=== PATIENT | male | born 1995 | race Hispanic/Latino ===

== ENCOUNTER 2016-09-22 13:37 | Emergency (ER) | payer OTHER ==
[2016-09-22 13:44] VITALS: BP 106/85
[2016-09-22] MEDS ORDERED: MORPHINE IM ONE (14:15)
[2016-09-22] MEDS ORDERED: NACL 0.9% IR ONE (14:16)
--- NOTE | 2016-09-22 14:18 | XRay Report ---
RIGHT FEMUR, ONE VIEW History: Trauma. Findings: Limited single view of the right femur is presented. The lateral femoral condyle is not included. No bony abnormality is detected. There is soft tissue gas in the distal thigh suggesting a soft tissue injury. Impression: No acute bony injury is appreciated.
[2016-09-22] MEDS ORDERED: BOOSTRIX IM ONE (14:37)
[2016-09-22] MEDS ORDERED: NACL 0.9% 500 ML IR ONE (14:58)
--- NOTE | 2016-09-22 18:26 | Emergency Department Report ---
Entered by LIAM LEUNG, acting as scribe for GALE HERNANDEZ NP. ED Animal Bite HPI - General Chief Complaint: Animal Bite Stated Complaint: DOG BITE RT LEG Time Seen by Provider: 09/22/16 13:54 Source: patient, police Mode of arrival: Ambulatory Limitations: No Limitations - History of Present Illness Initial Comments: This is a 21 y/o male nontoxic, well nourished in appearance, no acute signs of distress presents with bite soler to the right lower extremity resulting from a Police K9 dog attack after running from the police. Four bite soler noted on the anterior thigh and one bite tanner noted on the lateral calf. Bleeding is controlled and pt denies, fever, chills, chest pain, joint swelling, joint redness, joint tenderess, SOB, abd pain, numbness, tingling or PABON. Police K9 dog vaccinations are UTD. No additional Sx. Police is currently present in the time of interview. MD Complaint: animal bite (k9 dog bite) -: days(s) (today [employer]) Location: other (lower right extremity) Right: Thigh (4 bite soler to the anterior thigh), Leg (1 bite tanner to the lateral calf) Animal: dog Animal Control Notified: No Description: immunizations UTD (as per community relations officer) Mechanism: bite Pain Description: constant Severity scale (0 -10): 6 Context: other (running from [facility] police department) Associated Symptoms: bleeding (controlled). denies: erythema, discharge from wound, fever, chills, rash, loss of consciousness, cough, headache, diaphoresis , shortness of breath Treatments Prior to Arrival: wound dressing(s) - Related Data Patient Tetanus UTD: No (as per pt) Previous Rx's Medication Instructions Recorded Last Taken Type Amoxicillin/K Clav Tab [Augmentin 1 tab PO Q12HR #20 tab 09/22/16 Unknown Rx 875 mg] Ibuprofen [Motrin 600 MG tab] 600 mg PO Q8H PRN #15 tablet 09/22/16 Unknown Rx Allergies Allergy/AdvReac Type Severity Reaction Status Date / Time No Known Allergies Allergy Unverified 09/22/16 13:40 ED Review of Systems Comment: All other systems reviewed and negative Constitutional: denies: chills, fever Eyes: denies: eye pain, eye discharge, vision change ENT: denies: ear pain, throat pain Respiratory: denies: cough, shortness of breath, wheezing Cardiovascular: denies: chest pain, palpitations Endocrine: no symptoms reported Gastrointestinal: denies: abdominal pain, nausea, diarrhea Genitourinary: denies: urgency, dysuria Musculoskeletal: denies: back pain, joint swelling, arthralgia Skin: other (4 bite soler to the anterior thigh, 1 bite tanner to the lateral calf ). denies: rash, lesions Neurological: denies: headache, weakness, paresthesias Psychiatric: denies: anxiety, depression Hematological/Lymphatic: denies: easy bleeding, easy bruising ED Past Medical Hx - Past Medical History Previous Medical History?: No - Surgical History Past Surgical History?: No - Social History Smoking Status: Unknown if ever smoked Substance Use Type: None - Medications Home Medications: Home Medications Medication Instructions Recorded Confirmed Last Taken Type Amoxicillin/K Clav Tab [Augmentin 1 tab PO Q12HR #20 tab 09/22/16 Unknown Rx 875 mg] Ibuprofen [Motrin 600 MG tab] 600 mg PO Q8H PRN #15 tablet 09/22/16 Unknown Rx ED Physical Exam - General Limitations: No Limitations General appearance: alert, in no apparent distress - Head Head exam: Present: atraumatic, normocephalic - Eye Eye exam: Present: normal appearance, PERRL, EOMI Pupils: Present: normal accommodation - ENT ENT exam: Present: normal exam, normal orophraynx, mucous membranes moist, TM's normal bilaterally, normal external ear exam. Absent: mucous membranes dry - Neck Neck exam: Present: normal inspection, full ROM. Absent: tenderness, meningismus, lymphadenopathy, thyromegaly - Respiratory Respiratory exam: Present: normal lung sounds bilaterally. Absent: respiratory distress, wheezes, rales, rhonchi, stridor - Cardiovascular Cardiovascular Exam: Present: regular rate, normal rhythm, normal heart sounds. Absent: bradycardia, tachycardia, irregular rhythm, systolic murmur, diastolic murmur, rubs, gallop - GI/Abdominal GI/Abdominal exam: Present: soft, normal bowel sounds. Absent: distended, tenderness, guarding, rebound, rigid, diminished bowel sounds, mass, bruit - Rectal Rectal exam: Present: deferred - Extremities Exam Extremities exam: Present: normal inspection, full ROM, normal capillary refill. Absent: tenderness, pedal edema, joint swelling, calf tenderness - Back Exam Back exam: Present: normal inspection, full ROM. Absent: tenderness, CVA tenderness (R), CVA tenderness (L), muscle spasm, paraspinal tenderness, vertebral tenderness - Neurological Exam Neurological exam: Present: alert, oriented X3, CN II-XII intact, normal gait, reflexes normal. Absent: abnormal gait, motor sensory deficit - Psychiatric Psychiatric exam: Present: normal affect, normal mood - Skin Skin exam: Present: warm, dry, intact, normal color, other (four 0.2 cm bite soler to the anterior thigh, one 0.2cm bite tanner to the lateral calf. Bleeding controlled). Absent: rash ED Course Vital Signs 09/22/16 09/22/16 13:41 14:58 Temperature 97.7 F Pulse Rate 45 L 81 Respiratory 18 Rate Blood Pressure 106/85 O2 Sat by Pulse 96 Oximetry ED Disposition Clinical Impression: Animal bite, Abrasion Disposition: DC-01 TO HOME OR SELFCARE Is pt being admited?: No Does the pt Need Aspirin: No Condition: Stable Instructions: Animal Bite (ED), Acute Wound Care (ED) Additional Instructions: Observe symptoms of infection such as pus, redness, swelling, drainage, numbness , tingling, fever, chills and to report back to emergency room as soon as possible. Follow-up with a Primary care doctor in 24 hours. Take full course of antibiotics as prescribed. A pressure dressing has been applied to the wound and must be changed in less than 24 hours and observe symptoms of uncontrollable bleeding and if so report back to emergency room. Prescriptions: Amoxicillin/K Clav Tab [Augmentin 875 mg] 1 tab PO Q12HR #20 tab Ibuprofen [Motrin 600 MG tab] 600 mg PO Q8H PRN #15 tablet PRN Reason: Pain Referrals: [facility] [Outside] - 3-[address] [facility] [Outside] - 3-5 Days PRIMARY CAREMD [Primary Care Provider] - 24 Hours CHRISTINA ONEAL JR, MD [Staff Physician] - 24 Hours Forms: Work/School Release Form(ED) ED Medical Decision Making - Medical Decision Making Ed course: This is a 21-year-old male that presents with abrasions to the right lower extremity status post dog bite 1- community relations officer is currently present at the time of interview. Stated the K9 dog is up-to-date vaccines. 2- patient was instructed to observe symptoms of infection such as pus, redness , swelling, drainage, numbness, tingling, fever, chills and to report back to emergency room as soon as possible. 3- patient received Augmentin 875 mg by mouth at the time of discharge for 10 days. 4- patient received morphine 2 mg IM and Tetanus and wound has been irrigated and cleaned with 1 L of normal saline. Sterile pressure dressing has been applied. 5- at time time of discharge, the patient does not seem toxic or ill in appearance. No acute signs of distress noted. Patient agrees to discharge treatment plan of care. No further questions noted by the patient. 6- place officer stated that the patient is currently going to go to [facility] after visit. 7- x-ray has been obtained with normal results. no fx. Dictated by Dr. Hylton. This documentation as recorded by the MADHU vasques RYAN,accurately reflects the service I personally performed and the decisions made by ,GALE HERNANDEZ, DERRICK.
== END 2016-09-22 16:31 | disposition home or self-care (01) ==
LOC: ED 13:37
DX: S80.811A Abrasion, right lower leg, initial encounter (principal); W54.0XXA Bitten by dog, initial encounter; Y93.89 Activity, other specified; Y99.9 Unspecified external cause status; Y92.89 Other specified places as the place of occurrence of the external cause
CPT/HCPCS: 73551; 90471; 90715; 96372; 99283; J2270

== ENCOUNTER 2019-01-31 03:30 | Emergency (ER) | payer SELFPAY ==
[2019-01-31 03:53] VITALS: BP 137/92
[2019-01-31 04:21] LABS: Hematocrit 37.3 % (35.5-45.6); Mean Corpuscular HGB Conc 35 % (32-34); Mean Corpuscular Volume 89 fl (84-94); Platelet Count 336 K/mm3 (140-440); Red Blood Count 4.17 M/mm3 (3.65-5.03); Red Cell Distribution Width 13.4 % (13.2-15.2)
[2019-01-31 04:41] LABS: BUN/Creatinine Ratio 9; Blood Urea Nitrogen 8 mg/dL (9-20); Calcium 9.3 mg/dL (8.4-10.2); Hemolysis Index 10
[2019-01-31 05:06] LABS: Basophils % (Manual) 0 % (0.0-1.8); Platelet Estimate Consistent w Auto; RBC Morphology Normal; Total Cells Counted 100
[2019-01-31] MEDS ORDERED: TRIMOX PO ONE (05:06)
[2019-01-31] MEDS ORDERED: IBUPROFEN PO ONE (05:06)
--- NOTE | 2019-01-31 05:10 | Emergency Department Report ---
ED Medical Clearance HPI - General Chief complaint: Dental/Oral Stated complaint: TOOTHACHE Source: patient Mode of arrival: Ambulatory - History of Present Illness Initial comments: Patient is 23 years old male with history of drug abuse. Patient presented to the ER with 2 complaints. Patient wants medical clearance and referral to drug rehabilitation program. Patient stated that he has been using methamphetamine. Patient stated that last time used methamphetamine was 8 hours prior to coming to the ER. Patient also complaining of dental abscess to the right upper teeth. Patient denied any fever or chills. Patient also denied any suicidal or homicidal ideation. No visual or auditory hallucination. MD Complaint: medical clearance request Home medications: Previous Rx's Medication Instructions Recorded Last Taken Type Amoxicillin/K Clav Tab [Augmentin 1 tab PO Q12HR #20 tab 09/22/16 Unknown Rx 875 mg] Ibuprofen [Motrin 600 MG tab] 600 mg PO Q8H PRN #15 tablet 09/22/16 Unknown Rx Dextromethorphan Polistirex 30 mg PO Q12H PRN #1 bottle 04/02/18 Unknown Rx [Delsym] Ibuprofen [Motrin 600 MG tab] 600 mg PO Q8H #15 tablet 04/02/18 Unknown Rx Allergies/Adverse reactions: Allergies Allergy/AdvReac Type Severity Reaction Status Date / Time No Known Allergies Allergy Unverified 09/22/16 13:40 ED Review of Systems ROS: Stated complaint: TOOTHACHE Other details as noted in HPI Comment: All other systems reviewed and negative Constitutional: denies: chills, fever ENT: dental pain Respiratory: denies: cough, shortness of breath Cardiovascular: denies: chest pain Gastrointestinal: denies: abdominal pain, nausea Neurological: denies: headache, weakness ED Past Medical Hx - Past Medical History Previous Medical History?: Yes Hx Psychiatric Treatment: Yes (Anxiety) - Social History Smoking Status: Current Every Day Smoker Substance Use Type: Methamphetamines - Medications Home Medications: Home Medications Medication Instructions Recorded Confirmed Last Taken Type Amoxicillin/K Clav Tab [Augmentin 1 tab PO Q12HR #20 tab 09/22/16 Unknown Rx 875 mg] Ibuprofen [Motrin 600 MG tab] 600 mg PO Q8H PRN #15 tablet 09/22/16 Unknown Rx Dextromethorphan Polistirex 30 mg PO Q12H PRN #1 bottle 04/02/18 Unknown Rx [Delsym] Ibuprofen [Motrin 600 MG tab] 600 mg PO Q8H #15 tablet 04/02/18 Unknown Rx ED Physical Exam - General Limitations: No Limitations General appearance: alert, in no apparent distress - Head Head exam: Present: atraumatic, normocephalic, normal inspection - Eye Eye exam: Present: normal appearance - ENT ENT exam: Present: normal exam, normal orophraynx, mucous membranes moist - Neck Neck exam: Present: normal inspection, full ROM. Absent: tenderness, meni ngismus, lymphadenopathy, thyromegaly - Respiratory Respiratory exam: Present: normal lung sounds bilaterally - Cardiovascular Cardiovascular Exam: Present: tachycardia - GI/Abdominal GI/Abdominal exam: Present: soft. Absent: distended, tenderness, rebound, rigid, organomegaly, mass, bruit, pulsatile mass - Extremities Exam Extremities exam: Present: normal inspection, full ROM - Back Exam Back exam: Present: normal inspection - Neurological Exam Neurological exam: Present: alert, oriented X3, CN II-XII intact, normal gait, reflexes normal. Absent: motor sensory deficit - Psychiatric Psychiatric exam: Present: normal mood. Absent: depressed, agitated, anxious, flat affect, manic, homicidal ideation, suicidal ideation - Skin Skin exam: Present: warm, intact, normal color ED Course Vital Signs 01/31/19 03:40 Temperature 98.5 F Pulse Rate 127 H Respiratory 20 Rate Blood Pressure 137/92 O2 Sat by Pulse 96 Oximetry ED Medical Decision Making - Lab Data Result diagrams: 01/31/19 04:08 01/31/19 04:08 ED Disposition Clinical Impression: Dental abscess, Methamphetamine abuse Dis[facility] [place] Is pt being admited?: No Condition: Stable Referrals: PRIMARY CARE,MD [Primary Care Provider] - 3-5 Days
[2019-01-31 05:40] LABS: Bilirubin,Urine NEG (Negative); Blood,Urine SM (Negative); Color,Urine Straw (Yellow); Protein,Urine <15 mg/dL mg/dL (Negative); Urobilinogen,Urine < 2.0 mg/dL (<2.0); WBC,Urine < 1.0 /HPF (0.0-6.0)
[2019-01-31 05:47] LABS: Benzodiazepines Screen,Urine PRESUMPTIVE NEGATIVE; Cocaine Screen,Urine PRESUMPTIVE NEGATIVE; Methadone Screen,Urine PRESUMPTIVE NEGATIVE; Opiate Screen,Urine PRESUMPTIVE NEGATIVE
[2019-01-31 06:06] LABS: Amphetamine Screen,Urine PRESUMPTIVE POSITIVE; Cannabinoid Screen,Urine PRESUMPTIVE POSITIVE
== END 2019-01-31 05:47 | disposition left against medical advice (07) ==
LOC: ED 03:30
DX: K04.7 Periapical abscess without sinus (principal); F15.10 Other stimulant abuse, uncomplicated; F41.9 Anxiety disorder, unspecified; F17.200 Nicotine dependence, unspecified, uncomplicated; Z79.899 Other long term (current) drug therapy
CPT/HCPCS: 36415; 80048; 80307; 80320; 81001; 85007; 85025; 93005; 93010; G0480